=== PATIENT | female | born 1980 | race African-American/Black ===

== ENCOUNTER 2018-10-20 18:17 | Inpatient (IN) | payer BC, OTHER ==
[~2018-10-20] VITALS: Ht 170.2 cm; Wt 125.0 kg
[2018-10-20 19:27] VITALS: Ht 170.2 cm; Wt 125.0 kg
[2018-10-20 19:28] VITALS: BP 136/73; PULSE 94; RESP 18
[2018-10-20] MEDS ORDERED: TERBUTALINE 1 MG/ML INJ SC ONE (19:30)
[2018-10-20] MEDS ORDERED: LACTATED RINGER'S 1,000 ML IV PRN (19:30)
[2018-10-20] MEDS ORDERED: BETAMET NA PHOS/AC(6 MG/ML) 2 ML INJ SYG IM SCH ×2 (19:30→22:00)
[2018-10-20] MEDS ORDERED: ACETAMINOPHEN 325 MG TAB PO PRN (21:00)
[2018-10-20] MEDS: NIFEdipine 10 MG CAP PO SCH (21:35)
[2018-10-20] MEDS: LACTATED RINGER'S 1,000 ML IV SCH (21:35)
[2018-10-21] MEDS: NIFEdipine 10 MG CAP PO SCH (04:12)
[2018-10-21] MEDS: LACTATED RINGER'S 1,000 ML IV SCH ×2 (04:29→12:54)
[2018-10-21] MEDS ORDERED: PHENYLephrine (100 MCG/ML) 10ML SYG ONE (07:00)
[2018-10-21] MEDS ORDERED: OXYTOCIN 30 UNITS/LR 500 ML BAG IV ONE (07:00)
[2018-10-21] MEDS ORDERED: EPHEDrine 25 MG/5 ML SYG ONE (07:00)
[2018-10-21] MEDS ORDERED: PRENATAL VITAMIN PO SCH (09:00)
[2018-10-21] MEDS ORDERED: METHYLERGONOVINE 0.2 MG INJ IM PRN ×2 (09:30→17:30)
[2018-10-21] MEDS ORDERED: MISOPROSTOL 200 MCG TAB PR PRN ×2 (09:30→17:30)
[2018-10-21] MEDS ORDERED: CEFAZOLIN 3 GM in DEXTROSE 5% 100 ML IV ONE (09:30)
[2018-10-21] MEDS ORDERED: OXYTOCIN 30 UNITS/LR 500 ML IV SCH (09:30)
[2018-10-21] MEDS ORDERED: OXYTOCIN 30 UNITS/LR 500 ML IV PRN ×2 (09:30→17:30)
[2018-10-21] MEDS ORDERED: ONDANSETRON 4 MG INJ IV STA (09:38)
--- NOTE | 2018-10-21 09:44 | PREAC ---
Date/Time of Note Date/Time of Note DATE: 10/21/18 TIME: 09:43 Anesthesia Eval and Record Evaluation Time Pre-Procedure Interview DATE: 10/21/18 TIME: 09:43 Age 37 Sex female NPO: 8 hrs Preoperative diagnosis G11 at 37wks Planned procedure repeat c/s Past Medical History Past Medical History: Includes Pulm: Asthma GI: Morbid obesity Surgery & Anesthesia Issues No known issue Meds Anticoagulation: No Beta Jennifer within 24 hr: No Reason Beta Jennifer not given: Pt. not on B-Jennifer Current Medications Lactated Ringer's 1,000 ml @ 125 mls/hr Q8H PRN IV HYDRATION Last administered on 10/20/18at 19:41; Admin Dose 125 MLS/HR; Start 10/20/18 at 19:30 Lactated Ringer's 1,000 ml @ 125 mls/hr Q8H IV Last administered on 10/21/18at 04:29; Admin Dose 125 MLS/HR; Start 10/20/18 at 20:43 Betamethasone Acet/Betameth SodPhos (Celestone Soluspan) 12 mg Q24H IM Last administered on 10/20/18at 21:37; Admin Dose 12 MG; Start 10/20/18 at 22:00; Stop 10/21/18 at 22:01 Prenat Multivit/ Melvern/Iron/Folic Ac () 1 tab DAILY PO ; Start 10/21/18 at 09:00 Acetaminophen (Tylenol Tab) 650 mg Q4H PRN PO .PAIN OR TEMP Last administered on 10/20/18at 22:40; Admin Dose 650 MG; Start 10/20/18 at 21:00 Nifedipine (Procardia) 20 mg Q6H PO ; Start 10/21/18 at 10:00 Cefazolin Sodium 3 gm/Dextrose 100 ml @ 100 mls/hr ONCE ONCE IV ; Start 10/21/18 at 09:30; Stop 10/21/18 at 10:29 Oxytocin/Lactated Ringer's 500 ml @ 125 mls/hr POST IV ; Start 10/21/18 at 09:30 Oxytocin/Lactated Ringer's 500 ml @ 0 mls/hr ONCE PRN IV .VAGINAL BLEEDING; Start 10/21/18 at 09:30 Methylergonovine Maleate (Methergine) 0.2 mg ONCE PRN IM .VAGINAL BLEEDING; Start 10/21/18 at 09:30 Misoprostol (Cytotec) 1,000 mcg ONCE PRN MT .VAGINAL BLEEDING; Start 10/21/18 at 09:30 Metoclopramide HCl (Reglan) 10 mg ONCE ONCE IV ; Start 10/21/18 at 10:00; Stop 10/21/18 at 10:01 Meds reviewed: Yes Allergies Coded Allergies: No Known Allergy (Unverified , 10/20/18) Allergies Reviewed: Yes Labs/Studies Labs Reviewed: Reviewed by anesthesiologist Result Diagram: 10/21/18 0526 Laboratory Tests 10/21/18 05:26 test: Positive Pre-procedure Exam Last vitals Vital Signs Date Temp Pulse Resp B/P (MAP) Pulse Ox O2 O2 Flow FiO2 Time Delivery Rate 10/20/18 98.2 94 18 136/73 Room Air 19:28 (94) Airway: Adequate mouth opening, Adequate thyromental dist Mallampati: Mallampati II Teeth: Normal Lung: Normal Heart: Normal ASA Physical Status ASA physical status: 2 Emergency: None Planned Anesthetic Neuraxial: Spinal Planned Pain Management Sub-arachniod narcotics Pre-operative Attestations Prior to commencing anesthesia and surgery, the patient was re-evaluated, there was verification of: *The patient's identity *The results of appropriate recent lab work and preoperative vital signs *The above evaluation not changing prior to induction *Anesthetic plan, risk benefits, alternative and complications discussed with patient/family; questions answered; patient/family understands, accepts and wishes to proceed. UBALDO MEAD October 21, 2018 09:44
[2018-10-21] MEDS ORDERED: NIFEdipine 10 MG CAP PO SCH (10:00)
[2018-10-21] MEDS ORDERED: METOCLOPRAMIDE 10 MG INJ IV ONE (10:00)
[2018-10-21] MEDS ORDERED: ALBUTEROL/IPRATROPIUM (NEB) 3 ML AMP HHN PRN (11:30)
[2018-10-21] MEDS ORDERED: FLUTICASONE/VILANTEROL 200-25 INH DEVICE INH SCH (13:00)
[2018-10-21] MEDS ORDERED: AZITHROMYCIN 500MG/NS (PMX) 250 ML IV STA (13:12)
[2018-10-21] MEDS ORDERED: morphine SULFATE/PF (10 MG/10 ML) INJ ONE (13:12)
[2018-10-21] MEDS ORDERED: HYDROmorphONE 1 MG/5 ML IV SYRINGE IV PRN ×3 (14:00)
[2018-10-21] MEDS ORDERED: DIPHENHYDRAMINE 50 MG INJ IV PRN (14:00)
[2018-10-21] MEDS ORDERED: FENTAnyl 50 MCG/ML VIAL IV PRN ×2 (14:00)
[2018-10-21] MEDS ORDERED: ONDANSETRON 4 MG INJ IV PRN (14:00)
[2018-10-21] MEDS ORDERED: METOCLOPRAMIDE 10 MG INJ IV PRN (14:00)
[2018-10-21] MEDS ORDERED: ALBUTEROL 0.083% (NEB) 2.5 MG/3 ML AMP HHN PRN (14:00)
[2018-10-21] MEDS ORDERED: MEPERIDINE 25 MG INJ IV PRN (14:00)
[2018-10-21] MEDS ORDERED: NALOXONE (0.4 MG/ML) INJ IV PRN (14:00)
[2018-10-21] MEDS ORDERED: KETOROLAC 30 MG INJ IV PRN (14:00)
--- NOTE | 2018-10-21 14:26 | HP ---
Date/Time of Note Date/Time of Note DATE: 10/21/18 TIME: 14:21 OB - History Hx of Present Free Text/Dictation 37-year-old female 11 para 9 and ectopic 1 at 37 weeks gestation admitted complaining of onset of a uterine contractions in a.m. of admission Contractions appear to be irregular according to the patient She was sent in from clinic for rule out labor at 36 weeks and 6 days and noticed to have persistent uterine contractions not responding to p.o. nifedipine or subcutaneous terbutaline She had a firm confirmation for sterilization sign more than a months prior to her due date And finally because of a persistent uterine contractions she was scheduled to have a repeat section and bilateral tubal ligation Chief Complaint: Uterine contractions Last Menstrual Period: Feb 04, 2018 Estimated Due Date: Nov 11, 2018 : 11 Para: 9 Spontaneous : 1 Care: Good Care Ultrasounds: Normal mid trimester US Obstetrical Complications: None, Other (Grand multiparity) Medical Complications: Other (Asthma) Past Family/Social History * Past Medical, Surgical, Family and Obstetric Histories reviewed from chart. Blood Type: O+ Rubella: immune RPR/VDRL: Negative GBS Status: Unknown HBsAG: Negative OB Admission Exam Vital Signs Vital Signs Vital Signs Date Temp Pulse Resp B/P (MAP) Pulse Ox O2 O2 Flow FiO2 Time Delivery Rate 10/20/18 98.2 94 18 136/73 Room Air 19:28 (94) Physical Exam HEENT: WNL Heart: Rhythm Normal Lungs: Clear, Equal Abdomen: WNL Extremities: Normal Reflexes: Normal Cervical Dilatation: None Effacement: 50% Station: -3 Membranes: Intact Heart Rate: 140's Accelerations: Accelerations Present Decelerations: Early Decelerations Varibility: Marked Contractions on Admission: 6-10 Minutes Apart Date/Time Contractions Began: 10/20/2018 in a.m. Frequency of Contractions: Every 6 to 8 minutes Duration: Over 60 seconds Intensity: Mild Last 72 hours Lab Results CBC & BMP 10/21/18 05:26 OB Assessment/Plan Reason for admission: section Other Assessment: 37 weeks gestation Previous section x2 Labor contractions Grand multiparity Desires sterilization Other plan: Proceed with repeat section and tubal ligation JORDAN LALA MD October 21, 2018 14:26
--- NOTE | 2018-10-21 14:29 | PAC ---
Date/Time of Note Date/Time of Note DATE: 10/21/18 TIME: 14:29 Post-Anesthesia Notes Post-Anesthesia Note Last documented vital signs Vital Signs Date Temp Pulse Resp B/P (MAP) Pulse Ox O2 O2 Flow FiO2 Time Delivery Rate 10/20/18 98.2 94 18 136/73 Room Air 19:28 (94) Activity: WNL Respiratory function: WNL Cardiovascular function: WNL Mental status: Baseline Pain reasonably controlled: Yes Hydration appropriate: Yes Nausea/Vomiting absent: Yes UBALDO MEAD October 21, 2018 14:29
[2018-10-21] MEDS ORDERED: KETOROLAC 30 MG INJ IV STA (14:30)
[2018-10-21] MEDS ORDERED: ACETAMINOPHEN 500 MG TAB PO STA (14:30)
--- NOTE | 2018-10-21 14:30 | OPR ---
Operative Report Planned Procedure Procedure date October 21, 2018 Procedure(s) Repeat section and bilateral tubal ligation Performed by see signature line Costume Mistress: DANNA LEWIS MD Anesthesiologist: UBALDO MEAD Pre-procedure diagnosis Term gestation Previous section x2 Desired sterilization [id number] Anesthesia Type: [id number] spinal Post-Procedure Post-procedure diagnosis Status post repeat and bilateral tubal ligation Findings Live Baby in NAEL position Baby was delivered with intact membranes and membranes were ruptured on vertex Normal appearing right and left fallopian tubes and ovaries Clear amniotic fluid Nuchal cord x1 Estimated Blood Loss: 500 - 600 mls Specimen(s) Segments of right and left fallopian tubes Grafts/Implant(s) none Complication(s) none Pt Condition post procedure: stable Disposition: PACU Procedure Description Under satisfactory anaesthesia a Pfannenstiel incision was made two fingerbreadth above and parallel to the symphysis of pubis around the previous scar and previous scar was removed Incision was extended laterally to the border of the Recti muscles on either sides. Incision was carried down with sharp and blunt dissection until fascia was reached. Anterior Recti muscle fascia was incised in mid portion and incis ion extended laterally to the border of skin incision. Fascia was mobilized from muscle superiorly and Recti muscles were from midline using sharp and blunt dissection. Peritoneum was visualized; Avoiding bowel and bladder it was incised . Incision was extended superiorly and inferiorly. Bladder blade was placed. Posterior peritoneum covering the lower segment of the uterus and lower segment of the uterus were incised.Low transverse uterine incision was made on lower segment of the uterus. Incision extended laterally to the border of Round Lig. on either sides and baby was delivered from NAEL. position. Baby's vertex was delivered with intact membranes and membranes but ruptured on vertex. Amniotic fluid appeared clear. Cord blood was obtained and cord had 3 vessels . Placenta was delivered spontaneously and appeared intact and complete. Intrauterine cavity was rubbed with a laparotomy sponge. Uterine incision was closed in 2 layers using running stitches of No1 Monocryl. Hemostasis appeared secure. Ovaries and Fallopian tubes were within normal limits. Bilateral Tubal Ligation was performed by following procedure: R fallopian tube was raised in mid portion; a Santa clamp was placed below the fimbriae extending to proximal portion of the fallopian tube. Another clamp was placed parallel to the first and after incising the fallopian tube the stump was sutured using 0 Vicryl stitch. Hemostasis was secure . Same procedure was done on fallopian tube on the opposite side. Hemostasis appeared to be secure on ligated sites of either fallopian tubes. Announcing needle, lap sponge and instrument count to be correct abdomen was closed in layers as follows: Peritoneum and Recti muscles with running stitches of 2-0 Monocryl. Fascia with running stitch of No 1 PDS. Subcutaneous tissue with running stitches of 2-0 Monocryl and skin was closed using alyse. Patient tolerated the procedure well and was transferred to [facility] in good condition. JORDAN LALA MD October 21, 2018 14:30
[2018-10-21] MEDS ORDERED: ALBUTEROL HFA 8 GM INHALER INH PRN (16:00)
[2018-10-21 16:50] VITALS: BP 121/61; PULSE 76; RESP 20
[2018-10-21] MEDS ORDERED: LACTATED RINGER'S 1,000 ML IV SCH (17:20)
[2018-10-21] MEDS ORDERED: HYDROCODONE/APAP (5/325) TAB PO PRN (17:30)
[2018-10-21] MEDS ORDERED: NA PHOSPHATE/BIPHOS 133 ML ENEMA PR PRN (17:30)
[2018-10-21] MEDS ORDERED: LANOLIN HPA 1 PKT TOP PRN (17:30)
[2018-10-21] MEDS ORDERED: CARBOPROST 250 MCG INJ IM PRN (17:30)
[2018-10-21 17:32] VITALS: BP 120/58; PULSE 87; RESP 18
[2018-10-21 18:00] VITALS: BP 116/54; PULSE 82; RESP 18
[2018-10-21] MEDS: CEFAZOLIN 2 GM/50 ML (PMX) 50 ML IVPB SCH (18:02)
[2018-10-21] MEDS: CLINDAMYCIN 300 MG CAP PO SCH (18:02)
[2018-10-21 20:00] VITALS: BP 112/64; PULSE 84; RESP 18
[2018-10-21] MEDS: SENNA/DOCUSATE NA (8.6MG/50MG) TAB PO SCH (21:18)
[2018-10-22 00:05] VITALS: BP 109/72; PULSE 96; RESP 18
[2018-10-22] MEDS: CLINDAMYCIN 300 MG CAP PO SCH ×5 (00:25→23:32)
[2018-10-22] MEDS: CEFAZOLIN 2 GM/50 ML (PMX) 50 ML IVPB SCH ×2 (01:58→10:48)
[2018-10-22] MEDS: LACTATED RINGER'S 1,000 ML IV SCH ×2 (02:37→10:48)
[2018-10-22 04:20] VITALS: BP 122/69; PULSE 77; RESP 20
[2018-10-22] MEDS ORDERED: HYDROmorphONE 1 MG/ML SYG IV PRN (08:00)
[2018-10-22] MEDS ORDERED: KETOROLAC 30 MG INJ IV PRN (08:00)
[2018-10-22 08:25] VITALS: BP 121/73; PULSE 72; RESP 18
[2018-10-22] MEDS: SENNA/DOCUSATE NA (8.6MG/50MG) TAB PO SCH ×2 (08:27→20:38)
[2018-10-22] MEDS ORDERED: BISACODYL 10 MG SUPP PR ONE (10:30)
[2018-10-22 12:06] VITALS: BP 113/57; PULSE 75; RESP 19
[2018-10-22] MEDS: IBUPROFEN 800 MG TAB PO SCH ×2 (16:14→22:46)
[2018-10-22 16:53] VITALS: BP 120/74; PULSE 80; RESP 18
--- NOTE | 2018-10-22 17:46 | PN ---
Date/Time of Note Date/Time of Note DATE: 10/22/18 TIME: 17:42 Assessment/Plan VTE Prophylaxis VTE Prophylaxis Intervention: ambulation Assessment/Plan Assessment/Plan POD # 1 S/P C/S + BTL will advance diet and ambulate Subjective 24 Hr Interval Summary No bowel movement but passing flatus Constitutional: no complaints, improved, ambulates, BM, flatus, urine output Pain Control: well controlled Exam/Review of Systems Vital Signs Vitals Vital Signs Date Temp Pulse Resp B/P (MAP) Pulse Ox O2 O2 Flow FiO2 Time Delivery Rate 10/22/18 98.3 80 18 120/74 16:53 (89) 10/22/18 96 Room Air 12:09 Intake and Output 10/21/18 10/21/18 10/22/18 1515:00 23:00 07:00 IntakeIntake Total 812.5 ml 350 ml 3450 ml OutputOutput Total 1200 ml BalanceBalance 812.5 ml 350 ml 2250 ml Exam Free Text/Dictation Abdomen is soft and not distended with present bowel sounds incision is covered Constitutional: alert, oriented, well developed Psych: no complaints, nl mood/affect Head: normocephalic, atraumatic Eyes: nl conjunctiva, EOMI, nl lids, nl sclera ENMT: nl external ears & nose, nl lips & teeth, nl nasal mucosa & septum, mucosa pink and moist Neck: supple, non-tender Respiratory: clear to auscultation, normal air movement Cardiovascular: regular rate and rhythm, nl pulses Gastrointestinal: soft, nl liver, spleen, non-tender Musculoskeletal: nl extremities to inspection, nl gait and stance Extremities: normal pulses Neurological: MANAGER FLOAT II-XII intact, nl mental status, nl speech, nl strength Skin: nl turgor, rash or lesions Lymph: nl lymph nodes Results Result Diagram: 10/22/18 0721 JORDAN LALA MD October 22, 2018 17:45
[2018-10-22] MEDS: OXYCODONE/ACETAMINOPHEN (5/325) TAB PO PRN (18:37)
[2018-10-22 20:10] VITALS: BP 112/62; PULSE 68; RESP 19
[2018-10-23 03:50] VITALS: BP 111/64; PULSE 77; RESP 19
[2018-10-23] MEDS: CLINDAMYCIN 300 MG CAP PO SCH ×3 (05:35→17:55)
[2018-10-23] MEDS: IBUPROFEN 800 MG TAB PO SCH ×3 (05:36→22:07)
[2018-10-23 08:00] VITALS: BP 115/61; PULSE 87; RESP 18
[2018-10-23] MEDS: OXYCODONE/ACETAMINOPHEN (5/325) TAB PO PRN ×2 (08:06→15:16)
[2018-10-23] MEDS: SENNA/DOCUSATE NA (8.6MG/50MG) TAB PO SCH ×2 (09:00→21:00)
[2018-10-23 15:52] VITALS: BP 125/70; PULSE 94; RESP 18
--- NOTE | 2018-10-23 16:09 | DS ---
Date/Time of Note Date/Time of Note Home today or next day DATE: 10/23/18 TIME: 16:07 Obstetrical Discharge Record Final Diagnosis Final Diagnosis: Term delivered Other Final Diagnosis Status post repeat section and bilateral tubal ligation Vaginal Delivery Obstetrical Delivery: Bilateral Tubal Ligation Section Section: Repeat Condition on Discharge Physical Assessment Last Vitals: See nurse's notes Voiding: Yes Bowel Movement: Yes Breast: Soft, non-tender, Filling Fundus: Firm Abdomen and Incision: Abdomen is soft, bowel sounds are present, appears slightly tender in lower quadrants which is essentially incisional Incision is healing well without induration and or erythema Calf Tenderness: No Patient Condition: Good JORDAN LALA MD Oct 23, 2018 16:09
--- NOTE | 2018-10-23 16:12 | DS ---
Date/Time of Note Date/Time of Note DATE: 10/23/18 TIME: 16:09 Discharge Summary Admission/Discharge Info Admit Date/Time October 20, 2018 at 21:05 Discharge Date/Time October 23 or October 24, 2018 Discharge Diagnosis Status post repeat delivery and bilateral tubal ligation Patient Condition: Good Procedures Repeat section and tubal ligation Hx of Present Illness 37-year-old female underwent repeat section and tubal ligation at term Hospital Course Patient had uncomplicated hospitalization course She was tolerating diet well was ambulating without complications Discharge home on the second or third day with good prognosis and condition fully ambulatory Was asked to refer to clinic in 2 to 3 days for staple removal Follow-up Plan To 3 days in clinic for staple removal Primary Care Provider Not On Staff Doctor Time spent on discharge: > 30 minutes JORDAN LALA MD Oct 23, 2018 16:12
--- NOTE | 2018-10-23 16:13 | PD.PPDC ---
MINING ENGINEER Discharge Instruction Provider Information Physician Information 37-year-old female underwent repeat and tubal ligation Diagnosis [id number] Final Diagnosis: Bzohi9a Status post repeat and tubal ligation Condition [id number] Patient Condition: Gilbe9u Good Diet Nvfnp1Re Diet: Qbrzk0u Resume Regular Diet Activity/Restrictions Nasvd8Ss Activity: Ndlse7s May Shower Ofums0Np Restrictions: Yvdvr9d No Exercising No Lifting Nothing in the Vagina Uohyt5Di Return to Work or School: Fqisi3u Dec 27, 2018 Wound/Drain Care Instructions Qzgor4Be Wound/Drain Care Instructions: Qvuqy7v Keep clean and dry Follow-up Follow-up with Physician: 2, 3, Day/Days (In clinic for staple removal) Return to clinic for Ptzzk5Pw DRYWALL TAPER Instructions: Kommg3n Fever greater than 101 Chills Hmvmv2Cz OB Instructions: Oyuxc5r Breast Tenderness Depression Comment: Pelvic rest no hard activity for 2 months [id number] Surgical Instructions: Oovcb0x Incisional Drainage Incisional Redness JORDAN LALA MD Oct 23, 2018 16:13
[2018-10-23] MEDS ORDERED: ACET325T33 PO (16:14)
[2018-10-23] MEDS ORDERED: IBUP800T48 PO (16:15)
[2018-10-23] MEDS ORDERED: ACETAMINOPHEN 325 MG TAB PO PRN (16:30)
[2018-10-23 20:00] VITALS: BP 111/69; PULSE 75; RESP 19
[2018-10-24] MEDS: CLINDAMYCIN 300 MG CAP PO SCH ×3 (00:01→11:05)
[2018-10-24] MEDS: SENNA/DOCUSATE NA (8.6MG/50MG) TAB PO SCH ×2 (01:07→09:00)
[2018-10-24 03:50] VITALS: BP 124/70; PULSE 88; RESP 18
[2018-10-24] MEDS: OXYCODONE/ACETAMINOPHEN (5/325) TAB PO PRN (04:10)
[2018-10-24] MEDS: IBUPROFEN 800 MG TAB PO SCH ×2 (05:28→14:42)
[2018-10-24 08:00] VITALS: BP 109/68; PULSE 77; RESP 18
[2018-10-24] MEDS ORDERED: MEASLES,MUMPS,RUBELLA VACCINE INJ SC* ONE (09:00)
[2018-10-24] MEDS ORDERED: DIPHTH/TET/ACEL PERTUSS (ADULT) 0.5 ML VIAL IM* ONE (09:00)
--- NOTE | 2018-10-25 18:43 | DELSUM ---
Delivery Summary A-C Datetime Report Generated by CPN: 10/25/2018 18:43 DELIVERY PERSONNEL Email Marketing Specialist: Duvo, Keren MATERNAL INFORMATION Delivery Anesthesia: Spinal Medications in Delivery: see anesthesia record Delivery QBL (ml): 600 Placenta Cultured: No Maternal Complications: Other Other Maternal Complications: previous section in labor RN Comments: hx: asthma LABOR SUMMARY EDC: 11/11/2018 00:00 No. Babies in Womb: 1 Attempted: No Labor Anesthesia: None LABOR INFORMATION Reason for Induction: Not Applicable Oxytocin: N/A Group B Beta Strep: Not Done Antibiotics # of Doses: 2 Antibiotics Time of Last Dose: 10/21/2018 13:20 Steroids Given: Partial Course; <24Hrs before Delivery Reason Steroids Not Administered: Not Applicable MEMBRANES Membranes Rupture Method: Artificial Rupture of Membranes: 10/21/2018 13:38 Length of Rupture (hr): 0.00 Amniotic Fluid Color: Clear Amniotic Fluid Amount: Moderate Amniotic Fluid Odor: None STAGES OF LABOR Stage 3 hr: 0 Stage 3 min: 1 CSECTION DELIVERY Primary Indication: Repeat Elective Secondary Indication: Other Other Secondary Indication: BTL CSection Urgency: Non Elective CSection Incidence: Repeat Labor: Labor Elective: Nonelective CSection Incision: Lower Uterine Transverse Sterilization Procedure: [place] BABY A INFORMATION Infant Delivery Date/Time: 10/21/2018 13:38 Method of Delivery: Born in Route : No : N/A Forceps: N/A Vacuum Extraction: N/A Shoulder Dystocia : N/A SHOULDER DYSTOCIA BABY A Delivery Date/Time: 10/21/2018 13:38 PRESENTATION/POSITION BABY A Presentation: Cephalic Cephalic Presentation: Vertex Vertex Position: Left Occipital Anterior Breech Presentation: N/A PLACENTA INFORMATION BABY A Placenta Delivery Time : 10/21/2018 13:39 Placenta Method of Delivery: Manual Removal Placenta Status: Delivered SCORES BABY A Heart Rate 1 min: >100 bpm Resp Effort 1 min: Good Cry Reflex Irritability 1 min: Cough/Sneeze/Pulls Away Muscle Tone 1 min: Active Motion Color 1 min: Body [place], Extremit Blue Resuscitation Effort 1 min: Tactile Stimulation SCORE 1 MIN: 9 Heart Rate 5 min: >100 bpm Resp Effort 5 min: Good Cry Reflex Irritability 5 min: Cough/Sneeze/Pulls Away Muscle Tone 5 min: Active Motion Color 5 min: Body [place], Extremit Blue Resuscitation Effort 5 min: Tactile Stimulation SCORE 5 MIN: 9 INFORMATION BABY A Gestational Age at Delivery: 37.0 Gestational Status: Early Term- 37- 38.6 Weeks Outcome : Liveborn Condition : Stable Infant Sex: Male IDENTIFICATION/MEDS BABY A ID Band Number: [id number] ID Band Location: Right Leg; Left Arm Sensor Applied: Yes Sensor Number: [id number] Sensor Location : Cord Clamp Vitamin K Given : Not Given Erythromycin Given: Not Given WEIGHT/LENGTH BABY A Birthweight (gm): 3350 Infant Weight (lb): 7 Infant Weight (oz): 6 Infant Length (in): 21.00 Infant Length (cm): 53.34 CORD INFORMATION BABY A No. Cord Vessels: 3 Nuchal Cord : Around Neck x1, Loose Cord Blood Taken: Yes Infant Suction: Mouth; Nose ASSESSMENT BABY A Infant Complications: Multiple Late Decels Physical Findings at Delivery: Within Normal Limits Infant Respirations: Appears Normal Greige Goods Marker/ALS Called : Yes Care By: Parker CARVER Transferred To: Remains with Mother
== END 2018-10-24 18:15 | disposition home or self-care (01) | DRG 785 ==
LOC: OBT 18:17 → L-D 18:18 → EEVIPCON 21:05 → L-D 21:05 → OBT 21:05 → L-D 21:30 → PP1 10-21 16:53
PROVIDERS: ADMIT Obstetrics & Gynecology; ATTEND Obstetrics & Gynecology
PROC: 10D00Z1 Extraction of Products of Conception, Low, Open Approach (ICD-10-PCS; principal; 2018-10-20)
PROC: 0UT70ZZ Resection of Bilateral Fallopian Tubes, Open Approach (ICD-10-PCS; 2018-10-20)
DX: O34.211 Maternal care for low transverse scar from previous cesarean delivery (principal); O99.214 Obesity complicating childbirth; E66.01 Morbid (severe) obesity due to excess calories; O69.81X0 Labor and delivery complicated by cord around neck, without compression, not applicable or unspecified; Z3A.37 37 weeks gestation of pregnancy; Z37.0 Single live birth; Z30.2 Encounter for sterilization
CPT/HCPCS: 85025; 85610; 85730; 86592; 86850; 86900; 86901; 87340; 88302; 96360; 99464; G0463; J0456; J0690; J0702; J1170; J1885; J2210; J2274; J2370; J2405; J2590; J2765; J3105; J7120